=== PATIENT | female | born 1980 | race Caucasian/White ===

== ENCOUNTER 2016-03-02 12:08 | Observation (INO) | payer BC ==
--- NOTE | 2016-03-02 12:25 | ER Document Report ---
ED Medical Screen (RME) - General Stated Complaint: ABDOMINAL PAIN Notes: 35 yo female c/o epigastric pain radiating into back. acute onset around 0900 today constant pain. + vomiting. no fever. + similar pain, but not constant pain like today. + hx/o asthma, IBS TRAVEL OUTSIDE OF THE [place] IN LAST 30 DAYS: No - Related Data Allergies/Adverse Reactions: No Known Allergies Allergy (Verified 11/21/11 12:21) Past Medical History - Past Medical History Cardiac Medical History: Denies: Hx Pulmonary Embolism Pulmonary Medical History: Reports: Hx Asthma - No meds, last attack age 10 Denies: Hx Sleep Apnea, Hx Tuberculosis Neurological Medical History: Denies: Hx Seizures GI Medical History: Denies: Hx Gastroesophageal Reflux Disease, Hx Hiatal Hernia , Hx Ulcer Past Surgical History: Reports: Hx Section - x3. Denies: Hx Hysterectomy, Hx Pacemaker - Immunizations Hx Diphtheria, Pertussis, Tetanus Vaccination: No - declined Physical Exam - Vital signs Vitals: Temp Pulse Resp BP Pulse Ox 97.5 F 84 16 131/72 H 98 03/02/16 12:17 03/02/16 12:17 03/02/16 12:17 03/02/16 12:17 03/02/16 12:17 Course - Vital Signs Vital signs: Temp Pulse Resp BP Pulse Ox 97.5 F 84 16 131/72 H 98 03/02/16 12:17 03/02/16 12:17 03/02/16 12:17 03/02/16 12:17 03/02/16 12:17
[2016-03-02 12:59] LABS: APPEARANCE,URINE SLIGHTLY-CLOUDY; BILIRUBIN,URINE NEGATIVE (NEGATIVE); GLUCOSE, URINE NEGATIVE (NEGATIVE); KETONES,URINE NEGATIVE (NEGATIVE); LEUKOCYTE ESTERASE,URINE NEGATIVE (NEGATIVE); NITRITE,URINE NEGATIVE (NEGATIVE); PROTEIN,URINE NEGATIVE (NEGATIVE); URINE SPECIFIC GRAVITY 1.031; UROBILINOGEN,URINE NEGATIVE mg/dL (<2.0)
[2016-03-02 13:05] LABS: ABSOLUTE EOSINOPHILS # (AUTO) 0.1 10^3/uL (0.0-0.6); ABSOLUTE LYMPHOCYTES (AUTO) 1.2 10^3/uL (0.5-4.7); ABSOLUTE MONOCYTES (AUTO) 0.4 10^3/uL (0.1-1.4); ABSOLUTE NEUT (AUTO) 3.8 10^3/uL (1.7-8.2); BASOPHILS % (AUTO) 0.6 % (0-2); EOSINOPHILS % (AUTO) 1.9 % (0-6); HEMATOCRIT 39.7 % (36.0-47.0); HEMOGLOBIN 13.1 g/dL (12.0-15.5); HGB HCT DIFFERENCE -0.4; MEAN CORPUSCULAR HEMOGLOBIN 29.4 pg (27.0-33.4); MEAN CORPUSCULAR VOLUME 89 fl (80-97); MONOCYTES % (AUTO) 6.4 % (3-13); RED BLOOD COUNT 4.46 10^6/uL (3.72-5.28); RED CELL DISTRIBUTION WIDTH 13.6 % (11.5-14.0); SEGMENTED NEUTROPHILS % (AUTO) 70.1 % (42-78); WHITE BLOOD COUNT 5.5 10^3/uL (4.0-10.5)
[2016-03-02 13:19] LABS: ALANINE AMINOTRANSFERASE 27 U/L (9-52); ALBUMIN 4.6 g/dL (3.5-5.0); ALKALINE PHOSPHATASE 69 U/L (38-126); ANION GAP 13 (5-19); ASPARTATE AMINO TRANSFERASE 17 U/L (14-36); BILIRUBIN,TOTAL 0.4 mg/dL (0.2-1.3); BLOOD UREA NITROGEN 16 mg/dL (7-20); CALCIUM 9.7 mg/dL (8.4-10.2); CARBON DIOXIDE 26 mmol/L (22-30); CHLORIDE 105 mmol/L (98-107); CREATININE RESULT 0.69 mg/dL (0.52-1.25); GLUCOSE 91 mg/dL (75-110); LIPASE 93.4 U/L (23-300); POTASSIUM 4.3 mmol/L (3.6-5.0); SODIUM 143.5 mmol/L (137-145); TOTAL PROTEIN 7.3 g/dL (6.3-8.2)
[2016-03-02] MEDS ORDERED: MAG HYDROX/AL HYDROX/SIMETH SUSP 30 ML UDCUP PO ONE (13:36)
[2016-03-02] MEDS ORDERED: METOCLOPRAMIDE HCL ORAL SOLN 10 MG/10 ML UDCUP PO ONE (13:36)
[2016-03-02] MEDS ORDERED: LIDOCAINE 2% VISCOUS SOLN 20 ML UDCUP PO ONE (13:36)
[2016-03-02 15:16] LABS: CREATINE KINASE MB < 0.22 ng/mL (<4.55); TROPONIN I < 0.012 ng/mL
[2016-03-02] MEDS ORDERED: HYDROCODONE/ACETAMINOPHEN 5-325 MG TABLET PO ONE (15:39)
[2016-03-02] MEDS ORDERED: MORPHINE SULFATE 10 MG/ML INJ IV ONE ×2 (15:45→23:00)
[2016-03-02] MEDS ORDERED: NORMAL SALINE 1000 ML 1,000 ML IV ONE (15:45)
[2016-03-02] MEDS ORDERED: ONDANSETRON HCL INJ/PF 4 MG/2 ML SDV IV ONE (15:45)
--- NOTE | 2016-03-02 16:41 | ER Document Report ---
ED GI/ - General Chief Complaint: Abdominal Pain Stated Complaint: ABDOMINAL PAIN Mode of Arrival: Ambulatory Information source: Patient Notes: 35 y/o F presents to ED c/o epigastric/bilateral upper abdominal pain that started this morning approximately 9:00. Patient reports sharp/stabbing pain to mid upper abdomen/epigastric area that radiates bilaterally around upper abdomen to back. States pain as non-provoked and denies aggravating or relieving factors. Reports has had several similar episodes in the past over the last year but they have all self resolved within an hour of onset. Reports associated nausea without vomiting. Denies fever, recent illness, chest pain, shortness of breath, vomiting, or blood in stool. TRAVEL OUTSIDE OF THE [place] IN LAST 30 DAYS: No - HPI Patient complains to provider of: Abdominal pain Onset: This morning Timing/Duration: Sudden Quality of pain: Sharp, Stabbing Severity at maximum: Moderate Severity in ED: Moderate Pain Level: 4 Location: Epigastric Vaginal bleeding (Compared to normal period): None Similar symptoms previously: Yes Recently seen / treated by doctor: No - Related Data Allergies/Adverse Reactions: No Known Allergies Allergy (Verified 11/21/11 12:21) Past Medical History - General Information source: Patient - Social History Smoking Status: Never Smoker Chew tobacco use (# tins/day): No Frequency of alcohol use: None Drug Abuse: None Family History: Reviewed & Not Pertinent Patient has suicidal ideation: No Patient has homicidal ideation: No - Past Medical History Cardiac Medical History: Denies: Hx Pulmonary Embolism Pulmonary Medical History: Reports: Hx Asthma - No meds, last attack age 10 Denies: Hx Sleep Apnea, Hx Tuberculosis Neurological Medical History: Denies: Hx Seizures GI Medical History: Denies: Hx Gastroesophageal Reflux Disease, Hx Hiatal Hernia , Hx Ulcer Past Surgical History: Reports: Hx Section - x3. Denies: Hx Hysterectomy, Hx Pacemaker - Immunizations Hx Diphtheria, Pertussis, Tetanus Vaccination: Yes Review of Systems - Review of Systems Constitutional: No symptoms reported EENT: No symptoms reported Cardiovascular: No symptoms reported Respiratory: No symptoms reported Gastrointestinal: See HPI Genitourinary: No symptoms reported Female Genitourinary: No symptoms reported Musculoskeletal: No symptoms reported Skin: No symptoms reported Hematologic/Lymphatic: No symptoms reported Neurological/Psychological: No symptoms reported -: Yes All other systems reviewed and negative Physical Exam - Vital signs Vitals: Temp Pulse Resp BP Pulse Ox 97.5 F 84 16 131/72 H 98 03/02/16 12:17 03/02/16 12:17 03/02/16 12:17 03/02/16 12:17 03/02/16 12:17 Interpretation: Normal - General General appearance: Appears well, Alert In distress: None - HEENT Head: Normocephalic, Atraumatic Eyes: Normal Pupils: PERRL - Respiratory Respiratory status: No respiratory distress Chest status: Nontender Breath sounds: Normal Chest palpation: Normal - Cardiovascular Rhythm: Regular Heart sounds: Normal auscultation Murmur: No Pulses: Normal: Radial Normal capillary refill: Yes - Abdominal Inspection: Normal Distension: No distension Bowel sounds: Normal Tenderness: Tender - Tenderness to palpation to mid upper/epigastric area.. No : Nontender, McBurney's point, Hernandez's sign, Guarding, Rebound, Other Organomegaly: No organomegaly - Back Back: Normal, Nontender. No: Tender, Deformity/step-off, CVA tenderness, Vertebra tenderness, Scars, Scoliosis, Wounds, Other - Extremities General upper extremity: Normal inspection, Nontender, Normal color, Normal ROM , Normal strength, Normal temperature. No: Tender, Edema General lower extremity: Normal inspection, Nontender, Normal color, Normal ROM , Normal strength, Normal temperature, Normal weight bearing. No: Tender, Edema , Soraya's sign - Neurological Neuro grossly intact: Yes Cognition: Normal Orientation: AAOx4 [place] Coma Scale Eye Opening: Spontaneous [place] Coma Scale Verbal: Oriented [place] Coma Scale Motor: Obeys Commands Karlo Coma Scale Total: 15 Speech: Normal Motor strength normal: LUE, RUE, LLE, RLE Sensory: Normal - Psychological Associated symptoms: Normal affect, Normal mood - Skin Skin Temperature: Warm Skin Moisture: Dry Skin Color: Normal Course - Re-evaluation Re-evalutation: 03/02/16 15:45 Patient hemodynamically stable, in no distress, afebrile. Labs unremarkable, hCG negative. Cholelithiasis with stone in the gallbladder neck, no definite acute cholecystitis seen on ultrasound per radiologist. Patient presentation and findings discussed with surgeon [facility] consultant Dr. Dash who agrees to evaluate patient in the ED. 03/02/16 17:15 Dr. Dash evaluated patient in ED and agrees to assume care of patient and will admit to surgical observation unit. Advises first dose Unasyn in ED now. Findings and plan discussed with patient who verbalized understanding and agrees with plan. - Vital Signs Vital signs: Temp Pulse Resp BP Pulse Ox 97.5 F 84 16 131/72 H 98 03/02/16 12:23 03/02/16 12:23 03/02/16 12:23 03/02/16 12:23 03/02/16 12:23 - Laboratory Result Diagrams: 03/02/16 12:30 03/02/16 12:30 Laboratory results interpreted by me: 03/02/16 11:39 Urine Blood LARGE H - Diagnostic Test Radiology reviewed: Image reviewed, Reports reviewed Discharge - Discharge Clinical Impression: Pain of upper abdomen, Cholelithiasis Condition: Stable Disposition: ADMITTED OBSERVATION Admitting Provider: Surgicalist [facility] Unit Admitted: Surgical Floor
[2016-03-02] MEDS ORDERED: AMPICILLIN SOD/SULBACTAM 3 GM VIAL IV ONE (17:17)
--- NOTE | 2016-03-02 17:22 | PDOC H&P ---
History of Present Illness Admission Date/PCP: MASSIEL EDMONDS Patient complains of: Abdominal pain History of Present Illness: AMBER MARTINEZ is a 35 year old female, who came to emergency room complaining of abdominal pain in the upper abdomen and the right upper quadrant, which she started this morning at 9 AM, associated with nausea and vomiting, the pain is radiating to her back and it's the worst pain she had in her life, patient denies fever, she admitted to have a similar previous episodes of pain, but it was transient and it resolved spontaneously. Patient had an ultrasound of the right upper quadrant, the gallbladder was found to be distended, was a gallstone and a gallstone in the neck of the gallbladder. Surgical evaluation was requested. Past Medical History Cardiac Medical History: Denies: Pulmonary Embolism Pulmonary Medical History: Reports: Asthma - No meds, last attack age 10 Denies: Sleep Apnea, Tuberculosis Neurological Medical History: Denies: Seizures GI Medical History: Reports: Other - Irritable bowel syndrome Denies: Gastroesophageal Reflux Disease, Hiatal Hernia Past Surgical History Past Surgical History: Reports: Section - x3, Other - Tubal ligation, D &C Denies: Hysterectomy, Pacemaker Social History Smoking Status: Never Smoker - Advance Directive Resuscitation Status: Full Code Family History Family History: Reviewed & Not Pertinent Parental Family History Reviewed: No Children Family History Reviewed: NA Sibling(s) Family History Reviewed.: NA Medication/Allergy Home Medications: Pnv W-O Ca No5/Fe Fumarate/FA [-U Multiple Vitamin Capsule] 1 cap PO DAILY 03/31/12 Ibuprofen [Motrin 800 Mg Tablet] 800 mg PO Q8 PRN 04/04/12 Oxycodone HCl/Acetaminophen [Percocet 5-325 mg Tablet] 1 tab PO Q4 04/04/12 Cyclobenzaprine HCl [Flexeril 5 mg Tablet] 5 mg PO TID PRN #15 tablet 12/26/14 Oxycodone HCl/Acetaminophen [Percocet 5-325 mg Tablet] 1 - 2 tab PO ASDIR PRN # 15 tablet 12/26/14 Allergies/Adverse Reactions: No Known Allergies Allergy (Verified 11/21/11 12:21) Physical Exam Vital Signs: Temp Pulse Resp BP Pulse Ox 97.5 F 84 16 131/72 H 98 03/02/16 12:23 03/02/16 12:23 03/02/16 12:23 03/02/16 12:23 03/02/16 12:23 Intake & Output 03/01/16 03/02/16 03/03/16 06:59 06:59 06:59 Weight 51.4 kg General appearance: PRESENT: cooperative, mild distress Head exam: PRESENT: atraumatic, normocephalic Respiratory exam: PRESENT: clear to auscultation natasha GI/Abdominal exam: PRESENT: soft, tenderness - In the right upper quadrant. ABSENT: distended, firm, guarding, rebound, rigid Rectal exam: PRESENT: deferred Neurological exam: PRESENT: alert, awake Results Laboratory Results: 03/02/16 12:30 03/02/16 12:30 03/02/16 03/02/16 03/02/16 11:39 12:30 12:30 WBC 5.5 RBC 4.46 Hgb 13.1 Hct 39.7 MCV 89 MCH 29.4 MCHC 33.0 RDW 13.6 Plt Count 194 Seg Neutrophils % 70.1 Lymphocytes % 21.0 Monocytes % 6.4 Eosinophils % 1.9 Basophils % 0.6 Absolute Neutrophils 3.8 Absolute Lymphocytes 1.2 Absolute Monocytes 0.4 Absolute Eosinophils 0.1 Absolute Basophils 0.0 Sodium 143.5 Potassium 4.3 Chloride 105 Carbon Dioxide 26 Anion Gap 13 BUN 16 Creatinine 0.69 Est GFR ( Amer) > 60 Est GFR (Non-Af Amer) > 60 Glucose 91 Calcium 9.7 Total Bilirubin 0.4 AST 17 ALT 27 Alkaline Phosphatase 69 Total Protein 7.3 Albumin 4.6 Lipase 93.4 Urine Color YELLOW Urine Appearance SLIGHTLY-CLOUDY Urine pH 5.0 Ur Specific [place] 1.031 Urine Protein NEGATIVE Urine Glucose (UA) NEGATIVE Urine Ketones NEGATIVE Urine Blood LARGE H Urine Nitrite NEGATIVE Ur Leukocyte Esterase NEGATIVE Urine WBC (Auto) 3 Urine RBC (Auto) 29 03/02/16 03/02/16 12:30 12:30 Creatine Kinase 43 CK-MB (CK-2) < 0.22 Troponin I < 0.012 Impressions: Chest X-Ray 03/02/16 13:35 IMPRESSION: No suggestion of significant abnormality. Hyperinflated but clear lungs. This could reflect COPD or asthma. Abdomen Ultrasound 03/02/16 13:36 IMPRESSION: Cholelithiasis. Stone in the neck of the gallbladder but no definite acute cholecystitis. Assessment & Plan - Diagnosis (1) Cholecystitis with cholelithiasis Is this a current diagnosis for this admission?: YesPlan: Patient is 35 years old female with signs symptoms ultrasound findings suggestive of possible early cholecystitis, patient would benefit from surgical intervention, laparoscopic cholecystectomy possible open. I discussed with the patient the risks and benefits of the procedure including bleeding, infection, pain, scar formation, respiratory and the heart complications, injury to the other structures, retained gallstones, bile leak, injury to the possible need for further interventions or procedures, both patient expressed understanding and agree to proceed with the procedure. Procedure to be performed by the next surgical is in the morning, the meanwhile we keep patient nothing by mouth, IV hydration, IV antibiotics and pain medication.
[2016-03-02] MEDS ORDERED: AMPICILLIN SOD/SULBACTAM 3 GM VIAL IV SCH (17:30)
[2016-03-02] MEDS: ONDANSETRON HCL INJ/PF 4 MG/2 ML SDV IV PRN ×2 (18:18→23:52)
[2016-03-02] MEDS: MORPHINE SULFATE 10 MG/ML INJ IV PRN ×2 (18:20→22:06)
--- NOTE | 2016-03-02 21:36 | EKG REPORT ---
SEVERITY:- NORMAL ECG - SINUS RHYTHM : Confirmed by: Krzysztof Ordoñez 02-Mar-2016 21:35:24
[2016-03-02] MEDS ORDERED: AMPICILLIN SOD/SULBACTAM 3 GM VIAL ONE (23:36)
[2016-03-02] MEDS: AMPICILLIN SODIUM/SULBACTAM NA 3 GM in NORMAL SALINE 100 ML IV SCH (23:50)
[2016-03-02] MEDS: NORMAL SALINE 1000 ML 1,000 ML IV PRN (23:51)
[2016-03-03] MEDS: MORPHINE SULFATE 10 MG/ML INJ IV PRN ×4 (01:30→17:49)
[2016-03-03] MEDS: AMPICILLIN SODIUM/SULBACTAM NA 3 GM in NORMAL SALINE 100 ML IV SCH ×2 (05:22→19:52)
[2016-03-03] MEDS: ONDANSETRON HCL INJ/PF 4 MG/2 ML SDV IV PRN (05:29)
[2016-03-03] MEDS ORDERED: SUCCINYLCHOLINE CHLORIDE INJ 200 MG/10 ML VIAL ONE (08:04)
[2016-03-03] MEDS ORDERED: DEXAMETHASONE SOD PHOSPHATE INJ 4 MG/1 ML VIAL ONE (08:04)
[2016-03-03] MEDS ORDERED: LIDOCAINE 2% INJ-PF (20 MG/ML) 10 ML AMPUL ONE (08:04)
[2016-03-03] MEDS ORDERED: ROCURONIUM BROMIDE INJ 50 MG/5 ML VIAL IV ONE (08:04)
[2016-03-03] MEDS ORDERED: ONDANSETRON HCL INJ/PF 4 MG/2 ML SDV ONE (08:04)
[2016-03-03] MEDS: NORMAL SALINE 1000 ML 1,000 ML IV PRN (08:37)
[2016-03-03] MEDS ORDERED: ONDANSETRON HCL INJ/PF 4 MG/2 ML SDV IV PRN (10:01)
[2016-03-03] MEDS ORDERED: BUPIVACAINE HCL 0.25 % INJ/PF (2.5 MG/1 ML) 30 ML VIAL ONE (10:56)
--- NOTE | 2016-03-03 10:59 | PDOC PROGRESS REPORT ---
Subjective Progress Note for:: 03/03/16 Subjective:: Complaining of pain, right sided, with nausea. Getting pain medication and antibiotics [id number]. Physical Exam Vital Signs: Temp Pulse Resp BP Pulse Ox 99.9 F 74 18 111/75 100 03/03/16 07:30 03/03/16 09:43 03/03/16 10:07 03/03/16 07:30 03/03/16 10:07 Intake & Output 03/02/16 03/03/16 03/04/16 06:59 06:59 06:59 Intake Total 1000 Output Total 800 Balance 200 Weight 58.6 kg General appearance: PRESENT: mild distress GI/Abdominal exam: PRESENT: other - Flat, tender with guarding right upper quadrant and right side. Bowel sounds are hypoactive. Results Impressions: Chest X-Ray 03/02/16 13:35 IMPRESSION: No suggestion of significant abnormality. Hyperinflated but clear lungs. This could reflect COPD or asthma. Abdomen Ultrasound 03/02/16 13:36 IMPRESSION: Cholelithiasis. Stone in the neck of the gallbladder but no definite acute cholecystitis. Assessment & Plan - Diagnosis (1) Cholecystitis with cholelithiasis Is this a current diagnosis for this admission?: YesPlan: 1. Patient continues IV fluids, intravenous antibiotics, intravenous narcotics and intravenous antibiotic therapy 2. We'll set patient up for interval laparoscopic, possible open cholecystectomy. I reviewed the mechanics of the operation, as well as a description of the risks benefits and alternatives including bleeding, infection , bile duct injury, and need for additional surgery. Presently her understanding and agrees to proceed. - Time Time Spent with patient: 15-24 minutes
[2016-03-03] MEDS ORDERED: SCOPOLAMINE HYDROBROMIDE 1.5 MG PATCH.TD72 ONE (12:30)
[2016-03-03] MEDS ORDERED: FAMOTIDINE INJ/PF 20 MG/2 ML SDV IV ONE (12:30)
[2016-03-03] MEDS ORDERED: METOCLOPRAMIDE HCL INJ/PF 10 MG/2 ML SDV ONE (12:30)
[2016-03-03] MEDS ORDERED: FENTANYL CITRATE INJ/PF 250 MCG/5 ML AMPULE ONE (12:35)
[2016-03-03] MEDS ORDERED: MIDAZOLAM 2 MG/2 ML INJ ONE (12:36)
[2016-03-03] MEDS ORDERED: PROPOFOL INJ 200 MG/20 ML VIAL IV ONE (12:36)
[2016-03-03] MEDS ORDERED: MEPERIDINE HCL/PF INJ 25 MG/1 ML DISP.SYRIN IV PRN (13:43)
[2016-03-03] MEDS ORDERED: DIPHENHYDRAMINE HCL 50 MG/ML VIAL IV PRN (13:43)
[2016-03-03] MEDS ORDERED: MORPHINE SULFATE 10 MG/ML INJ IV PRN (13:43)
[2016-03-03] MEDS ORDERED: FENTANYL CITRATE INJ/PF 100 MCG/2 ML AMPUL IV PRN ×3 (13:43)
--- NOTE | 2016-03-03 15:04 | Operative Report ---
Operative Report DATE OF SURGERY: 03/03/16 PREOPERATIVE DIAGNOSIS: Acute cholecystitis and cholelithiasis POSTOPERATIVE DIAGNOSIS: Same OPERATION: 1. Laparoscopic cholecystectomy. 2. Extremely difficult modifier SURGEON: DANIEL SORTO LINUX PROGRAMMER: CRISTELA JACOBSEN ANESTHESIA: GA TISSUE REMOVED OR ALTERED: Gallbladder with stones COMPLICATIONS: None ESTIMATED BLOOD LOSS: 300 mL of blood loss INTRAOPERATIVE FINDINGS: see below PROCEDURE: After obtaining informed consent, the patient was taken to the operating room. General Anesthesia was induced; the arms were extended, and the abdomen was exposed, and prepped and draped in a sterile fashion. Instrumentation was set up for laparoscopic cholecystectomy. Surgical plan and surgical timeout were conducted. A vertical incision was made above the umbilicus, and a verres needle was inserted uneventfully into the peritoneal cavity. Pneumoperitoneum was established. The verres needle was removed and a 5 mm trocar was inserted and a 5 mm flexible laparoscope was inserted. Visualization of the peritoneal cavity confirmed safe uneventful entry. Under direct visualization 3 additional 5 mm ports were established, one in the subxiphoid position and second in the subcostal position. The findings are significant for an acutely inflamed gallbladder with the omentum stuck to the fundus. [place] and suction dissection was performed freeing the gallbladder up from the surrounding omentum. We then aspirated the gallbladder approximately 100 mL of clear bile consistent with biliary hydrops. We then began dissecting out the neck of the gallbladder and its junction with the cystic duct. Visualization of the hepatobiliary anatomy revealed no anatomic variations. A grasper was placed on the fundus of the gallbladder and the gallbladder is elevated over the right surface of the liver; a second grasper was used to grasp the infundibulum of the gallbladder. The neck of the gallbladder and junction with the cystic duct was dissected out. The anatomy here again due to the edema, and increased vasculature, was classic in its configuration, orientation and size, however before dividing either the cystic artery cystic duct, I wanted to have the plate between the gallbladder and the liver bed opened completely. We therefore approached a top down dissection at this time. Using a combination of hook and electrocautery dissection, we began bringing the gallbladder off of the liver bed. This was a tedious dissection requiring approximately 45 minutes of cautery, and suction. We did get into some liver bleeding which was venous in nature handled with electrocautery and Surgicel. Eventually we got the plate opened up distal to the cystic artery cystic duct and were now confident we were safe to divide the cystic artery and cystic duct. Multiple photographs were taken. The Cystic artery was in its usual location medial and cephalad to the cystic duct. The cystic artery was surrounded with a right angle clamp, clipped twice proximally and divided with laparoscopic scissors. The gallbladder was suspended nearly solely by the cystic duct. We now milked the cystic duct of any possible stones, clipped the cystic duct approximately 2 times once distally and divided with scissors. Photographs were taken of this process. The remaining attachments between the gallbladder and liver bed which were minimal were removed using electrocautery. Graspers were repositioned and the gallbladder was removed uneventfully from the abdominal cavity and placing it in an Endobag and then bringing and out of the patient through the super umbilical port site incision. The specimen was examined, then passed off to pathology for permanent analysis. It had multiple gallstones. We returned to the peritoneal cavity check for bleeding, and evidence of bile leak, and there was only minimal ooze from the previously cauterized and treated area of the inferior surface of the liver which was managed with a few additional pieces of Surgicel. We allow the patient to assume the anatomic position, irrigated out the pelvis, and reinspected the liver bed and there was no ongoing bleeding. I did not choose to place a drain. We Confirmed satisfactory placement of clips on cystic duct and cystic artery were secured . At this point we felt the operation was complete. The fascial defect at the umbilicus was closed with 2 0 [id number] Vicryl sutures The subcutaneous tissue was then anesthetized with quarter percent Marcaine Sponge and needle counts are correct. All ports removed under direct visualization pneumoperitoneum evacuated, and 5 mm port wounds closed with 3-0 Vicryl suture, benzoin and Steri-Strips. The patient was extubated, and taken to the recovery room in stable condition. The physician assistant professor of drama, Ms. Jacobsen, provided assistance during this case by: Assisting and port insertion, retracting tissue, instillation of local anesthesia and closure of skin incisions. Rationale for extremely difficult modifier: A long case of 45 minutes the on the normal, edema, erythema, increased bleeding. Despite these factors, we did have excellent visualization using our 5 mm flexible laparoscope, and excellent first assisting..
[2016-03-03 15:52] LABS: HEMOGLOBIN 12.6 g/dL (12.0-15.5); HGB HCT DIFFERENCE -0.2; MEAN CORPUSCULAR HEMOGLOBIN 29.4 pg (27.0-33.4); MEAN CORPUSCULAR HGB CONC 33.3 g/dL (32.0-36.0); MEAN CORPUSCULAR VOLUME 88 fl (80-97); RED BLOOD COUNT 4.31 10^6/uL (3.72-5.28); RED CELL DISTRIBUTION WIDTH 13.7 % (11.5-14.0)
[2016-03-03 15:55] LABS: WHITE BLOOD COUNT 18.8 10^3/uL (4.0-10.5)
[2016-03-03 15:59] LABS: BASOPHILS % (MANUAL) 0 % (0-2); EOSINOPHILS % (MANUAL) 0 % (0-6); LYMPHOCYTES % (MANUAL) 4 % (13-45); TOTAL CELLS COUNTED 100
[2016-03-03 16:01] LABS: TOXIC GRANULATION SLIGHT
[2016-03-03] MEDS ORDERED: ACETAMINOPHEN 100 ML IV ONE (16:10)
[2016-03-03] MEDS ORDERED: CEFAZOLIN 1 GM/D5W RTU 50 ML IV SCH (18:00)
[2016-03-03] MEDS: CEFAZOLIN SODIUM 1 GM in DEXTROSE 5%-WATER 50 ML IV SCH (21:15)
[2016-03-03] MEDS: KETOROLAC TROMETHAMINE INJ/PF 30 MG/1 ML SDV IV PRN (21:44)
[2016-03-04] MEDS: AMPICILLIN SODIUM/SULBACTAM NA 3 GM in NORMAL SALINE 100 ML IV SCH ×3 (00:47→11:18)
[2016-03-04] MEDS: KETOROLAC TROMETHAMINE INJ/PF 30 MG/1 ML SDV IV PRN (03:26)
[2016-03-04] MEDS: CEFAZOLIN SODIUM 1 GM in DEXTROSE 5%-WATER 50 ML IV SCH ×3 (03:26→14:09)
[2016-03-04] MEDS: HYDROCODONE/ACETAMINOPHEN 5-325 MG TABLET PO PRN ×3 (08:18→15:46)
[2016-03-04] MEDS: NORMAL SALINE 1000 ML 1,000 ML IV PRN (14:03)
[2016-03-04 17:12] VITALS: BP 94/48
--- NOTE | 2016-03-04 17:18 | PDOC DISCHARGE SUMMARY ---
General - Admit/Disc Date/PCP Admission Date/Primary Care Provider: 03/02/16 17:22 MASSIEL EDMONDS Discharge Date: 03/04/16 - Discharge Diagnosis (1) Cholecystitis with cholelithiasis Is this a current diagnosis for this admission?: Yes - Additional Information Resuscitation Status: Full Code Home Medications: Dicyclomine HCl [Bentyl 10 mg Capsule] 1 cap PO TID 03/02/16 History of Present Illness History of Present Illness: AMBER MARTINEZ is a 35 year old female who was admitted on 03/02/2016 with cholecystitis with cholelithiasis. The stone was impacted in the neck of the gallbladder. She was brought to the operative suite on 03/03/2016 where a laparoscopic cholecystectomy was performed. Significant cholecystitis was seen at the time of surgery. See operative note for further details regarding her procedure. The patient was admitted back to the floor after surgery and her diet was gradually advanced. On 03/04/2016 she was tolerating a diet, pain was well-controlled with oral pain pills, she was ambulating, passing flatus and urinating without difficulty. She was discharged home. Hospital Course Hospital Course: AMBER MARTINEZ is a 35 year old female who was admitted on the evening of 2016 with cholecystitis with cholelithiasis. The stone was impacted in the neck of the gallbladder. She was brought to the operative suite on 03/03/2016 where a laparoscopic cholecystectomy was performed. Significant cholecystitis was seen at the time of surgery. See operative note for further details regarding her procedure. The patient was admitted back to the floor after surgery and her diet was gradually advanced. On 03/04/2016 she was tolerating a diet, pain was well-controlled with oral pain pills, she was ambulating, passing flatus and urinating without difficulty. She was discharged home. Physical Exam Vital Signs: Temp Pulse Resp BP Pulse Ox 99.1 F 101 H 16 102/52 L 99 03/04/16 07:33 03/04/16 07:33 03/04/16 07:33 03/04/16 07:33 03/04/16 07:33 Intake & Output 03/03/16 03/04/16 03/05/16 06:59 06:59 06:59 Intake Total 1000 4300 Output Total 800 3650 Balance 200 650 Weight 58.6 kg 58.6 kg General appearance: PRESENT: no acute distress Eye exam: PRESENT: EOMI Mouth exam: PRESENT: tongue midline GI/Abdominal exam: PRESENT: soft, tenderness - Incision clean dry and intact with Steri-Strips. Appropriate incisional tenderness.. ABSENT: distended Neurological exam: PRESENT: alert, oriented to situation Psychiatric exam: PRESENT: appropriate affect, normal mood Skin exam: ABSENT: jaundice Results Laboratory Results: 03/03/16 15:31 Impressions: Chest X-Ray 03/02/16 13:35 IMPRESSION: No suggestion of significant abnormality. Hyperinflated but clear lungs. This could reflect COPD or asthma. Abdomen Ultrasound 03/02/16 13:36 IMPRESSION: Cholelithiasis. Stone in the neck of the gallbladder but no definite acute cholecystitis. Plan Discharge Plan: Discharge home. Walk frequently. No lifting greater than 10 pounds. Regular diet. Starting tomorrow, shower daily. No submerging incision in top or pool. Continue to deep breathe and cough. Take stool softener while on narcotic pain pills to prevent constipation. No driving while on narcotics. Follow-up with Dr. Khan in clinic in 7-10 days.
== END 2016-03-04 18:00 | disposition home or self-care (01) ==
LOC: ER 12:08 → EH 17:22 → 2N 21:22
PROVIDERS: ADMIT Surgery; ATTEND Surgery
PROC: 0FT44ZZ Resection of Gallbladder, Percutaneous Endoscopic Approach (ICD-10-PCS; principal; 2016-03-03 12:30)
DX: K80.00 Calculus of gallbladder with acute cholecystitis without obstruction (principal); K58.9 Irritable bowel syndrome, unspecified
CPT/HCPCS: 47562; 93005; 96376; 99285; 96361; 96375; 96365; 36415 ×2; 82553; 82550; 83690; 85025 ×2; 81025; 80053; 81001; 84484; 88304 ×2; 71020; 76705; 93010; G0378 ×4; J2250; J0690 ×2; J3490 ×3; J1100; J3010; J0295 ×3; J1885 ×2; J2765; J2270 ×2; J0330; J2405 ×2; J7030 ×3; J2704; S0028; J0131; 790

== ENCOUNTER → 2017-05-11 | Outpatient (CLI) | payer BC ==
[2017-05-11 09:54] LABS: ABSOLUTE EOSINOPHILS # (AUTO) 0.1 10^3/uL (0.0-0.6); ABSOLUTE LYMPHOCYTES (AUTO) 1.3 10^3/uL (0.5-4.7); ABSOLUTE MONOCYTES (AUTO) 0.3 10^3/uL (0.1-1.4); ABSOLUTE NEUT (AUTO) 3.7 10^3/uL (1.7-8.2); BASOPHILS % (AUTO) 0.6 % (0-2); EOSINOPHILS % (AUTO) 1.4 % (0-6); HEMATOCRIT 39.7 % (36.0-47.0); LYMPHOCYTES % (AUTO) 24.2 % (13-45); MEAN CORPUSCULAR HEMOGLOBIN 29.4 pg (27.0-33.4); MEAN CORPUSCULAR HGB CONC 32.9 g/dL (32.0-36.0); MEAN CORPUSCULAR VOLUME 89 fl (80-97); MONOCYTES % (AUTO) 5.8 % (3-13); PLATELET COUNT 186 10^3/uL (150-450); RED BLOOD COUNT 4.44 10^6/uL (3.72-5.28); RED CELL DISTRIBUTION WIDTH 13.9 % (11.5-14.0); TOTAL CELLS COUNTED % (AUTO) 100 %; WHITE BLOOD COUNT 5.5 10^3/uL (4.0-10.5)
[2017-05-11 10:13] LABS: ALANINE AMINOTRANSFERASE 29 U/L (9-52); ALBUMIN 4.2 g/dL (3.5-5.0); ALKALINE PHOSPHATASE 53 U/L (38-126); ANION GAP 10 (5-19); ASPARTATE AMINO TRANSFERASE 16 U/L (14-36); BILIRUBIN,DIRECT 0.3 mg/dL (0.0-0.4); BILIRUBIN,TOTAL 0.3 mg/dL (0.2-1.3); BLOOD UREA NITROGEN 17 mg/dL (7-20); CALCIUM 9.6 mg/dL (8.4-10.2); CARBON DIOXIDE 25 mmol/L (22-30); CHLORIDE 108 mmol/L (98-107); GLUCOSE 78 mg/dL (75-110); POTASSIUM 4.3 mmol/L (3.6-5.0); SODIUM 142.6 mmol/L (137-145); TOTAL PROTEIN 7.1 g/dL (6.3-8.2); TRIGLYCERIDES 73 mg/dL (<150)
[2017-05-11 10:32] LABS: FREE T4 (FREE THYROXINE) 0.89 ng/dL (0.78-2.19)
[2017-05-11 10:36] LABS: DIRECT LDL 83 mg/dL (<100)
[2017-05-11 10:41] LABS: ERYTHROCYTE SEDIMENTATION RATE 10 mm/hr (0-20)
[2017-05-11 10:46] LABS: THYROID STIMULATING HORMONE 6.79 uIU/mL (0.47-4.68)
== END ==
LOC: OD 09:10
PROVIDERS: ATTEND Family Medicine
DX: Z00.01 Encounter for general adult medical examination with abnormal findings (principal); K58.2 Mixed irritable bowel syndrome; Z82.49 Family history of ischemic heart disease and other diseases of the circulatory system
CPT/HCPCS: 36415; 80053; 80061; 84439; 84443; 85025; 85652

== ENCOUNTER 2017-06-22 11:00 | Day surgery (SDC) | payer BC ==
[~2017-06-22 11:00] MED LIST: PROPOFOL INJ 200 MG/20 ML VIAL IV ONE
[2017-06-22 12:47] VITALS: BP 109/67
--- NOTE | 2017-06-22 13:10 | Operative Report ---
Operative Report DATE OF SURGERY: 06/22/17 Operative Report: The risks, benefits and alternatives of the procedure including risks of bleeding, perforation requiring surgery are explained to the patient in detail and informed consent was obtained. The patient is brought back to the endoscopy suite and placed in the left, lateral decubital position. Timeout was called. Propofol medications administered. A rectal examination is done which did not reveal any masses, tears or fissures. An Olympus videoscope was inserted into the patient's rectum. The scope was then carefully advanced all the way to the cecum. The cecum was identified by the usual anatomical landmarks including the ileocecal valve as well as the appendiceal office. Photodocumentation is obtained. Prep is good. Intubation of the terminal ileum is done. The scope was then sequentially pulled back via the various segments of the colon splenic flexure, descending colon and finally into the rectosigmoid portions of the colon. Retroflexion maneuvers performed. PREOPERATIVE DIAGNOSIS: Abdominal pain, change in bowel habits POSTOPERATIVE DIAGNOSIS: Mild terminal ileitis status post biopsy, internal hemorrhoids OPERATION: Colonoscopy with biopsy SURGEON: CAROL ANN PALACIOS ANESTHESIA: LMAC TISSUE REMOVED OR ALTERED: As noted above. COMPLICATIONS: None. ESTIMATED BLOOD LOSS: None. INTRAOPERATIVE FINDINGS: As noted above. PROCEDURE: Patient tolerated the procedure well. No immediate postprocedure complications are noted. Patient discharged in good condition. Discharge date 06/22/2017. Discharge diet: Regular. Discharge activity: Regular. 2-3 week follow-up to discuss findings. Patient is instructed to call the office or proceed to the emergency room should there be any further problems or questions. We will wait on pathology.
== END 2017-06-22 12:30 | disposition home or self-care (01) ==
LOC: END 11:00
PROVIDERS: ATTEND Internal Medicine Gastroenterology
DX: K52.9 Noninfective gastroenteritis and colitis, unspecified (principal); K64.8 Other hemorrhoids
CPT/HCPCS: 45380; 88305 ×2; J2704; 811

== ENCOUNTER → 2018-06-25 | Outpatient (CLI) | payer OTHER ==
[2018-06-25 09:04] LABS: ABSOLUTE EOSINOPHILS # (AUTO) 0.1 10^3/uL (0.0-0.6); ABSOLUTE LYMPHOCYTES (AUTO) 1.3 10^3/uL (0.5-4.7); ABSOLUTE MONOCYTES (AUTO) 0.3 10^3/uL (0.1-1.4); ABSOLUTE NEUT (AUTO) 3.1 10^3/uL (1.7-8.2); BASOPHILS % (AUTO) 0.7 % (0-2); EOSINOPHILS % (AUTO) 1.8 % (0-6); HEMATOCRIT 38.3 % (36.0-47.0); HEMOGLOBIN 12.8 g/dL (12.0-15.5); LYMPHOCYTES % (AUTO) 26.6 % (13-45); MEAN CORPUSCULAR HEMOGLOBIN 29.8 pg (27.0-33.4); MEAN CORPUSCULAR HGB CONC 33.4 g/dL (32.0-36.0); MEAN CORPUSCULAR VOLUME 89 fl (80-97); MONOCYTES % (AUTO) 7.1 % (3-13); PLATELET COUNT 207 10^3/uL (150-450); RED CELL DISTRIBUTION WIDTH 13.3 % (11.5-14.0); SEGMENTED NEUTROPHILS % (AUTO) 63.8 % (42-78); TOTAL CELLS COUNTED % (AUTO) 100 %; WHITE BLOOD COUNT 4.9 10^3/uL (4.0-10.5)
[2018-06-25 09:26] LABS: ALANINE AMINOTRANSFERASE 23 U/L (9-52); ALKALINE PHOSPHATASE 59 U/L (38-126); ANION GAP 7 (5-19); ASPARTATE AMINO TRANSFERASE 18 U/L (14-36); BILIRUBIN,DIRECT 0.2 mg/dL (0.0-0.4); BILIRUBIN,TOTAL 0.3 mg/dL (0.2-1.3); BLOOD UREA NITROGEN 16 mg/dL (7-20); CALCIUM 9.4 mg/dL (8.4-10.2); CARBON DIOXIDE 28 mmol/L (22-30); CHLORIDE 105 mmol/L (98-107); GLUCOSE 79 mg/dL (75-110); POTASSIUM 4.4 mmol/L (3.6-5.0); SODIUM 140.3 mmol/L (137-145); TOTAL PROTEIN 6.9 g/dL (6.3-8.2)
[2018-06-25 09:41] LABS: FREE T4 (FREE THYROXINE) 0.95 ng/dL (0.78-2.19)
[2018-06-25 09:55] LABS: THYROID STIMULATING HORMONE 2.68 uIU/mL (0.47-4.68)
== END ==
LOC: OD 08:23
PROVIDERS: ATTEND Family Medicine
DX: E02 Subclinical iodine-deficiency hypothyroidism (principal); K91.5 Postcholecystectomy syndrome; Z13.0 Encounter for screening for diseases of the blood and blood-forming organs and certain disorders involving the immune mechanism
CPT/HCPCS: 36415; 80053; 84439; 84443; 85025